=== PATIENT | female | born 1965 | race Caucasian/White ===

== ENCOUNTER → 2017-07-05 | Outpatient (CLI) | payer BC ==
[~2017-07-05] MED LIST: ALBU90OI INH; ALLEGRA ALLERG180 M1 PO; AZIT250 PO; Adipex-P37.5 M1 PO; Advil200 M1 PO; BENZ100A PO; CEPH500 PO; CODGUAEL PO; CYCL10 PO; ESCI10 PO; FEXO60 PO; K-Dur 20 meq T20 MEQ PO; LISHYD1012; LORA2 PO; LOSARTAN-HCTZ1 EAC1 PO; OMEP20ER PO; OMEPRAZOLE MAGN20 MG PO; PRED20 PO; VARE1 PO
== END | disposition home or self-care (01) ==
LOC: LAB SHORT 08:36 → LAB EV 08:36
DX: R07.0 Pain in throat (principal)
CPT/HCPCS: 87070

== ENCOUNTER 2018-06-20 19:19 | Emergency (ER) | payer BC ==
[~2018-06-20] VITALS: Ht 162.6 cm; Wt 122.5 kg
[2018-06-20] MEDS ORDERED: Amoxicillin500 M1 PO (19:56)
[2018-06-20] MEDS ORDERED: Roxicodone5 MG PO (20:05)
== END 2018-06-20 20:15 | disposition home or self-care (01) ==
LOC: ER 19:19
DX: K08.89 Other specified disorders of teeth and supporting structures (principal); I10 Essential (primary) hypertension; Z79.899 Other long term (current) drug therapy; Z87.891 Personal history of nicotine dependence
CPT/HCPCS: 99282